=== PATIENT | female | born 1945 | race Hispanic/Latino ===

== ENCOUNTER 2022-02-25 10:04 | Day surgery (SDC) | payer MEDICARE ==
[2022-02-21 16:23] LABS: BASOPHILS % (AUTO) 0.9 % (0.0-5.0); EOSINOPHILS % (AUTO) 2.4 % (0.0-8.0); HEMATOCRIT 36.9 % (36-48); LYMPHOCYTES % (AUTO) 20.3 % (21.0-51.0); MEAN CORPUSCULAR HEMOGLOBIN 31.1 pg (27.0-33.0); MEAN CORPUSCULAR HGB CONC 34.4 g/dL (32.0-36.0); MEAN CORPUSCULAR VOLUME 90.4 fL (79-99); MONOCYTES % (AUTO) 5.9 % (3.0-13.0); NEUTROPHILS % (AUTO) 69.6 % (40.0-77.0); PLATELET COUNT (AUTO) 224 K/uL (130-400); RED BLOOD CELL COUNT(AUTO) 4.08 MIL/uL (4.00-5.50); RED CELL DISTRIBUTION WIDTH 12.3 % (11.0-15.5); WHITE BLOOD COUNT (AUTO) 5.8 K/uL (4.8-10.8)
[2022-02-21 16:24] LABS: APPEARANCE,URINE Clear (CLEAR); BILIRUBIN,URINE Negative (NEGATIVE); COLOR,URINE Yellow (YELLOW); GLUCOSE, URINE (UA) Negative (NEGATIVE); KETONES,URINE Negative (NEGATIVE); LEUKOCYTE ESTERASE ,URINE Trace (NEGATIVE); NITRATE,URINE Negative (NEGATIVE); OCCULT BLOOD,URINE Moderate (NEGATIVE); PROTEIN,URINE Negative (NEGATIVE); UROBILINOGEN,URINE 0.2 mg/dL (0.2-1.0)
[2022-02-21 16:28] LABS: CREATININE 0.6 mg/dL (0.5-1.5); POTASSIUM 4.6 mmol/L (3.5-5.1)
[2022-02-21 16:31] LABS: INR 0.93 (0.85-1.15); PROTHROMBIN TIME 9.8 SEC (9.6-11.6)
[2022-02-21 16:33] LABS: PARTIAL THROMBOPLASTIN TIME 26.6 SEC (26.3-35.5)
[2022-02-21 16:35] LABS: BACTERIA,URINE Rare /HPF (None Seen); SQUAMOUS EPITHELIAL CELL,UR Rare /HPF (0-2); WBC,URINE 0-1 /HPF (0-1)
[2022-02-21 16:44] LABS: B-TYPE NATRIURETIC PEPTIDE 77 pg/mL (0-100)
[2022-02-22 16:16] VITALS: BP 151/68
[~2022-02-25] VITALS: Ht 149.9 cm; Wt 52.2 kg
[~2022-02-25 10:04] MED LIST: 0.9%NACL 1000ML 1,000 ML IV SCH; AEC81 PO; ATOR10 PO; CARB200T PO; FOLIC ACID PO; LEVE1000 PO; LEVE750T4 PO; LISI10TA24 PO; METO25TA6 PO
[2022-02-25 11:26] LABS: CREATININE 0.6 mg/dL (0.5-1.5); POTASSIUM 4.5 mmol/L (3.5-5.1)
== END 2022-02-25 13:00 | disposition home or self-care (01) ==
LOC: DAH 10:04
PROVIDERS: ATTEND Internal Medicine Cardiovascular Disease
DX: I21.4 Non-ST elevation (NSTEMI) myocardial infarction (principal); J90 Pleural effusion, not elsewhere classified; Z53.8 Procedure and treatment not carried out for other reasons
CPT/HCPCS: 36415 ×2; 71045; 80048 ×2; 81001; 83880; 85025; 85610; 85730; 93005; A4215; A4216; A4221; A4222; A4223 ×3; A4606; A4663; J7030

== ENCOUNTER → 2024-02-23 | Outpatient (CLI) | payer OTHER ==
[~2024-02-23] MED LIST changes: -0.9%NACL 1000ML 1,000 ML IV SCH; -CARB200T PO; +CARBXR100 PO; +IRON PO; +LEVE-43 PO; -LEVE1000 PO; -LEVE750T4 PO; +vitamin b12 SL
== END | disposition home or self-care (01) ==
LOC: SHCH 08:54
PROVIDERS: ATTEND Internal Medicine Cardiovascular Disease
DX: I08.3 Combined rheumatic disorders of mitral, aortic and tricuspid valves (principal); I11.9 Hypertensive heart disease without heart failure; E78.5 Hyperlipidemia, unspecified
CPT/HCPCS: 93306